=== PATIENT | female | born 1985 | race Caucasian/White ===

== ENCOUNTER 2018-05-16 06:49 | Inpatient (IN) | payer BC ==
[2018-05-16] MEDS ORDERED: OXYTOCIN 10 UNIT/ML 1 ML VIAL IM PRN (07:22)
[2018-05-16] MEDS ORDERED: LIDOCAINE 1% (PF) 10 MG/ML (30 ML SDV) SQ PRN (07:22)
[2018-05-16] MEDS ORDERED: CARBOPROST TROMETHAMINE 250 MCG/ML 1 ML AMP IM PRN (07:22)
[2018-05-16] MEDS ORDERED: METHYLERGONOVINE 0.2 MG/ML 1 ML AMP IM PRN (07:22)
[2018-05-16] MEDS ORDERED: TERBUTALINE 1 MG/ML VIAL SQ PRN (07:22)
[2018-05-16] MEDS: LACTATED RINGERS 1,000 ML IV SCH ×4 (07:30→23:59)
[2018-05-16 07:31] VITALS: BMI 31.3
[2018-05-16 07:36] LABS: Basophils % (A) 0 %; Eosinophils # (A) 0.1 k/uL (0-0.7); Eosinophils % (A) 0 %; HCT 41.2 % (34.0-46.0); Lymphocytes # (A) 2.1 k/uL (1.0-4.8); Lymphocytes % (A) 13 %; MCH 29.9 pg (25.0-35.0); MCHC 34.1 g/dL (31.0-37.0); MCV 87.8 fL (80.0-100.0); Mean Platelet Volume 8.1; Monocytes # (A) 0.7 k/uL (0-1.0); Monocytes % (A) 5 %; Neutrophils # (A) 12.5 k/uL (1.3-7.7); Neutrophils % (A) 80 %; Platelet Count 204 k/uL (150-450); RBC 4.69 m/uL (3.80-5.40); RDW 13.7 % (11.5-15.5); WBC 15.5 k/uL (3.8-10.6)
[2018-05-16] MEDS ORDERED: ROPIVACAINE 100 MG, fentaNYL (PF) 200 MCG in SODIUM CHLORIDE 0.9% 76 ML EPIDURAL ONE (07:59)
--- NOTE | 2018-05-16 08:15 | P.HPOB ---
History of Present Illness H&P Date: 05/16/18 Chief Complaint: IUP @ 39 4/7 weeks, active labor This is a 33-year-old @ 39 4/7 weeks, that presents in active labor. She notes regular painful contractions, she denies loss of fluid or vaginal bleeding. She was a recent transfer to [facility] from [facility] at 26-6/7 weeks. On blood work blood type of A-, rubella immune, RPR nonreactive, hepatitis B surface antigen negative, HIV negative she did pass her Glucola at 28 weeks, and received RhoGAM along with Tdap, She is GBS negative Review of Systems Constitutional: Denies chills, Denies fatigue, Denies fever Cardiovascular: Reports edema Respiratory: Denies cough, Denies dyspnea Gastrointestinal: Denies constipation, Denies diarrhea Genitourinary: Reports Past Medical History Past Medical History: No Reported History History of Any Multi-Drug Resistant Organisms: None Reported Past Surgical History: Tonsillectomy Additional Past Surgical History / Comment(s): [place] tooth extraction Past Anesthesia/Blood Transfusion Reactions: No Reported Reaction Past Psychological History: No Psychological Hx Reported Smoking Status: Never smoker Past Alcohol Use History: None Reported Past Drug Use History: None Reported - Past Family History Mother Family Medical History: No Reported History Medications and Allergies Home Medications Medication Instructions Recorded Confirmed Type Cetirizine HCl [Zyrtec] 5 mg PO DAILY 05/16/18 05/16/18 History Omeprazole [PriLOSEC] 20 mg PO AC-BRKFST 05/16/18 05/16/18 History Pnv,Calcium 72/Iron/Folic Acid 1 each PO DAILY 05/16/18 05/16/18 History [ Plus Tablet] Allergies Allergy/AdvReac Type Severity Reaction Status Date / Time Sulfa (Sulfonamide Allergy Rash/Hives Verified 05/16/18 06:55 Antibiotics) Exam Osteopathic Statement: *. No significant issues noted on an osteopathic structural exam other than those noted in the History and Physical/Consult. Vital Signs Temp Pulse Resp BP Pulse Ox 05/16/18 07:28 97.9 F 88 16 134/85 05/16/18 07:04 97.9 F 81 18 134/85 100 Intake and Output 05/15/18 05/16/18 05/16/18 22:59 06:59 14:59 Other: Weight 88.451 kg 87.997 kg - OBG Physical Exam Abdomen: gravid Cervix: 7/-2 vertex presentation, intact membranes Uterus: gravid and appropriate for GA Results Result Diagrams: 05/16/18 07:20 Abnormal Lab Results - Last 24 Hours (Table) 05/16/18 Range/Units 07:20 WBC 15.5 H (3.8-10.6) k/uL Neutrophils # 12.5 H (1.3-7.7) k/uL Assessment and Plan (1) Term Current Visit: Yes Status: Acute Code(s): Z34.80 - ENCOUNTER FOR SUPRVSN OF NORMAL , UNSP TRIMESTER SNOMED Code(s): 27069520 Plan: Admit to labor and delivery with anticipation of spontaneous vaginal delivery.
[2018-05-16] MEDS ORDERED: DEXAMETHASONE SOD PHOS (MDV) 100 MG/10 ML VIAL ONE (12:30)
[2018-05-16] MEDS ORDERED: MORPHINE SULFATE 4 MG/ML SYRINGE ONE (12:30)
[2018-05-16] MEDS ORDERED: ONDANSETRON 4 MG/2 ML VIAL ONE (12:30)
[2018-05-16] MEDS ORDERED: ACETAMINOPHEN IV (For NPO) 1,000 MG/100 ML VIAL ONE (12:30)
[2018-05-16] MEDS ORDERED: SODIUM CHLORIDE 0.9% 100 ML BAG ONE (12:30)
[2018-05-16] MEDS ORDERED: LIDOCAINE 2% (PF) 20 MG/ML 2 ML VIAL ONE (12:30)
[2018-05-16] MEDS ORDERED: OXYTOCIN 10 UNIT/ML 1 ML VIAL ONE (12:30)
[2018-05-16] MEDS ORDERED: diphenhydrAMINE 50 MG CAP PO PRN (13:24)
[2018-05-16] MEDS ORDERED: diphenhydrAMINE 50 MG/ML 1 ML VIAL IVP PRN ×2 (13:24)
[2018-05-16] MEDS ORDERED: METOCLOPRAMIDE 5 MG/ML 2 ML VIAL IVP PRN (13:24)
[2018-05-16] MEDS ORDERED: diphenhydrAMINE 25 MG CAP PO PRN (13:24)
[2018-05-16] MEDS ORDERED: NALOXONE 0.4 MG/ML 1 ML VIAL IV PRN ×2 (13:24→19:09)
[2018-05-16] MEDS ORDERED: ONDANSETRON 4 MG/2 ML VIAL IVP PRN (13:24)
[2018-05-16] MEDS ORDERED: ZOLPIDEM 5 MG TAB PO PRN (13:24)
[2018-05-16] MEDS ORDERED: LANOLIN CREAM 5 GM TUBE TOPICAL PRN (13:24)
[2018-05-16] MEDS ORDERED: OXYTOCIN 20 UNITS/1000 ML NS 1,000 ML IV SCH (13:30)
--- NOTE | 2018-05-16 13:32 | P.OP ---
Date of Procedure: 05/16/18 Preoperative Diagnosis: IUP at 39 and 4, nonreassuring heart tones Postoperative Diagnosis: Same Procedure(s) Performed: Primary low transverse section Anesthesia: epidural Surgeon: Carol Man Gasser Machine Operator #1: Hoang Appiah Estimated Blood Loss (ml): 500 IV fluids (ml): 600 Urine output (ml): 100 Pathology: none sent Condition: stable Disposition: observation Indications for Procedure: Nonreassuring heart tones with pushing Operative Findings: Normal uterus tubes and ovaries were appreciated. Infant male in occiput transverse presentation clear fluid noted Description of Procedure: The patient was prepped and draped in the usual fashion after epidural anesthesia was found to be adequate. A Pfannenstiel incision was made and extended of the abdominal cavity without difficulty. The bladder peritoneum was elevated and incised and reflected distally. A 2 cm incision was made in the transverse plane of the lower uterine segment to enter the uterus at which time clear fluid was noted. The incision was extended in both directions using the bandage scissors. The head was encountered within the field and delivered up and through the incision where the nose and mouth were thoroughly suctioned. Remainder of the was delivered onto the surgical field where the cord was doubly clamped, cut, and the infant was passed for resuscitative measures with weight 7-7and Apgars 9-9 at one and 5 minutes respectively. A segment of cord was then doubly clamped, cut, and set aside should cord gases become necessary. The placenta was delivered manually, intact, and was grossly normal with a grossly normal three-vessel cord. The uterus was exteriorized and the interior cavity of the uterus swept of any remaining placental and membranous fragments with a laparotomy sponge. The margins of the incision were grasped with allis clamps and the incision closed in 2 layers. First layer was a running locking layer of 0 vicryl from margin to margin followed by a second layer of imbricating 0 vicryl from margin to margin. Any small points of bleeding were then made hemostatic with the Bovie. Once hemostasis was achieved, the posterior cul-de-sac was suctioned with a guard and the uterine and ovarian findings are as noted above. The uterus was replaced within the abdominal cavity and the gutters swept of any remaining blood fluid or clot. The incision was again reexamined and hemostasis was noted to be excellent. Any small point of bleeding were made hemostatic with the Bovie. Once hemostasis was achieved the parietal peritoneum was loosely reapproximated. The layer of muscles were examined and made hemostatic with the Bovie. Attention was then turned to the fascia which was closed with 2 running stitches of 0 Vicryl proceeding from the lateral margins to the midpoint. The subcutaneous tissues were irrigated, made hemostatic with the Bovie. The skin was reapproximated with 4- vicryl. Estimated blood loss for the case was approximately 500 mL. All sponge instrument and needle counts are correct. There were no complications. The patient tolerated the procedure well and proceeded to the recovery room in stable condition. Both mother and infant are resting comfortably in recovery.
[2018-05-16] MEDS ORDERED: IBUPROFEN IV 800 MG in SODIUM CHLORIDE 0.9% 250 ML IV ONE (14:00)
[2018-05-16] MEDS ORDERED: Rhogam IMMUNE GLOBULIN 1,500 UNIT/1 ML IM ONE (18:30)
[2018-05-16] MEDS ORDERED: MORPHINE SULFATE 4 MG/ML SYRINGE IVP PRN (19:09)
[2018-05-16] MEDS: SENNOSIDES-DOCUSATE SODIUM 1 EACH TAB PO SCH (19:33)
[2018-05-17] MEDS: IBUPROFEN 600 MG TAB PO PRN ×4 (04:03→21:52)
[2018-05-17 07:24] LABS: Basophils % (A) 0 %; Eosinophils % (A) 0 %; HCT 34.7 % (34.0-46.0); HGB 12.1 gm/dL (11.4-16.0); Lymphocytes # (A) 2.7 k/uL (1.0-4.8); Lymphocytes % (A) 15 %; MCH 31.1 pg (25.0-35.0); MCHC 34.8 g/dL (31.0-37.0); MCV 89.2 fL (80.0-100.0); Mean Platelet Volume 8.3; Monocytes # (A) 0.7 k/uL (0-1.0); Monocytes % (A) 4 %; Neutrophils # (A) 14.7 k/uL (1.3-7.7); Neutrophils % (A) 80 %; Platelet Count 177 k/uL (150-450); RBC 3.89 m/uL (3.80-5.40); WBC 18.3 k/uL (3.8-10.6)
--- NOTE | 2018-05-17 07:29 | P.PN ---
Progress Note - Text Date: 05/17/2018 Time: 0658 The patient is status post section Vital signs stable VAS: 0-10 Patient has no complaints of pain. The patient incurred some minimal itching yesterday, this itching is now subsiding. Pain meds to be managed by service.
[2018-05-17] MEDS: SENNOSIDES-DOCUSATE SODIUM 1 EACH TAB PO SCH ×2 (08:16→22:15)
[2018-05-17] MEDS: ACETAMINOPHEN TAB 325 MG TAB PO PRN ×2 (08:16→18:54)
--- NOTE | 2018-05-17 08:30 | P.PNOBGPC ---
Subjective - Subjective Principal diagnosis: POD 1 LTCS NRFHTs Interval history: Patient is doing well this morning. She is ambulating to the bathroom without difficulty. She is complaining of some mild discomfort. She is tolerating clear liquids and is eating breakfast as we speak but she denies nausea and vomiting. She states her lochia is moderate this morning. Patient reports: Reports appetite normal, Reports voiding normally, Reports ambulating normally Coin: doing well Objective - Vital Signs Latest vital signs: Vital Signs Temp Pulse Resp BP Pulse Ox 05/17/18 06:00 16 05/17/18 04:00 98.9 F 96 16 124/63 98 05/17/18 02:00 16 05/16/18 23:51 98.4 F 88 16 143/81 98 05/16/18 22:00 16 98 05/16/18 19:43 98.7 F 97 16 141/88 98 05/16/18 15:20 98.8 F 108 H 16 146/84 99 05/16/18 14:50 105 H 14 138/83 05/16/18 14:20 108 H 16 148/82 98 05/16/18 14:05 100.3 F H 111 H 16 126/74 97 05/16/18 13:50 102 H 16 132/75 98 05/16/18 13:35 100.8 F H 103 H 16 144/88 97 05/16/18 13:20 99.1 F 112 H 14 159/71 97 Intake and Output 05/16/18 05/17/18 05/17/18 22:59 06:59 14:59 Output Total 1999 800 Balance -1999 Output: Urine 1999 800 Uretheral (Wilder) 500 - Exam Extremities: Present: normal Abdomen: Present: normal appearance, soft Incision: Present: normal, dry, intact Uterus: Present: firm - Labs Labs: Abnormal Lab Results - Last 24 Hours (Table) 05/17/18 Range/Units 07:01 WBC 18.3 H (3.8-10.6) k/uL Neutrophils # 14.7 H (1.3-7.7) k/uL Assessment and Plan (1) Term Current Visit: Yes Status: Acute Code(s): Z34.80 - ENCOUNTER FOR SUPRVSN OF NORMAL , UNSP TRIMESTER SNOMED Code(s): 95133936 (2) S/P section Current Visit: Yes Status: Acute Code(s): Z98.891 - HISTORY OF UTERINE SCAR FROM PREVIOUS SURGERY SNOMED Code(s): 563491211 Plan: Patient is doing well , we will encourage increased ambulation and advance her diet. She is encouraged to take the oral pain medication ordered the Motrin, Tylenol, [place] as needed for pain.
[2018-05-18] MEDS: ACETAMINOPHEN TAB 325 MG TAB PO PRN ×2 (01:03→07:57)
[2018-05-18] MEDS: IBUPROFEN 600 MG TAB PO PRN ×3 (04:27→15:50)
[2018-05-18 08:44] VITALS: BP 137/80; PULSE 90; RESP 14; TEMP 97.7
[2018-05-18] MEDS: SENNOSIDES-DOCUSATE SODIUM 1 EACH TAB PO SCH (09:37)
--- NOTE | 2018-05-18 09:47 | P.DS ---
Providers Date of admission: 05/16/18 07:06 Expected date of discharge: 05/18/18 Attending physician: Carol Man Primary care physician: Stated None - Discharge Diagnosis(es) (1) Term Current Visit: Yes Status: Acute (2) S/P section Current Visit: Yes Status: Acute Hospital Course: This is a 33-year-old 1 para 0 that presented in active labor to labor and delivery. On initial cervical exam she was 5-6 cm. She was admitted to labor and delivery with expectant management. Amniotomy was performed and clear fluid was obtained. Patient progressed to complete began pushing nonreassuring heart tones were noted with pushing despite multiple position changes therefore a primary low transverse section was performed without difficulty. For further details on the please see the operative report. Infant boy delivered at 1244, weight of 7 lbs. 7 oz., Apgars of 9 and 9 at one and 5 minutes respectively. Patient's postoperative course has been uneventful. On this postop day #2 she is ambulating and voiding without difficulty. She is tolerating a regular diet without nausea or vomiting. She states her pain is controlled with oral Motrin and Tylenol. Plan - Discharge Summary New Discharge Prescriptions: No Action Pnv,Calcium 72/Iron/Folic Acid [ Plus Tablet] 1 each PO DAILY Omeprazole [PriLOSEC] 20 mg PO AC-BRKFST Cetirizine HCl [Zyrtec] 5 mg PO DAILY Discharge Medication List Cetirizine HCl [Zyrtec] 5 mg PO DAILY 05/16/18 [History] Omeprazole [PriLOSEC] 20 mg PO AC-BRKFST 05/16/18 [History] Pnv,Calcium 72/Iron/Folic Acid [ Plus Tablet] 1 each PO DAILY 05/16/18 [ History] Follow up Appointment(s)/Referral(s): Carol Man DO [Doctor of Osteopathic Medicine] - 2 Weeks Patient Instructions/Handouts: (DC), (GEN) Discharge Disposition: HOME SELF-CARE
== END 2018-05-18 16:15 | disposition home or self-care (01) | DRG 766 ==
LOC: FBPOP 06:49 → 4FBP 07:06
PROVIDERS: ADMIT Obstetrics & Gynecology Obstetrics; ATTEND Obstetrics & Gynecology Obstetrics
PROC: 10D00Z1 Extraction of Products of Conception, Low, Open Approach (ICD-10-PCS; principal; 2018-05-16 12:44)
PROC: 00HU33Z Insertion of Infusion Device into Spinal Canal, Percutaneous Approach (ICD-10-PCS; principal; 2018-05-16 12:44)
PROC: 3E0R3NZ Introduction of Analgesics, Hypnotics, Sedatives into Spinal Canal, Percutaneous Approach (ICD-10-PCS; principal; 2018-05-16 12:44)
PROC: 10907ZC Drainage of Amniotic Fluid, Therapeutic from Products of Conception, Via Natural or Artificial Opening (ICD-10-PCS; principal; 2018-05-16 12:44)
DX: O76 Abnormality in fetal heart rate and rhythm complicating labor and delivery (principal); Z37.0 Single live birth; Z3A.39 39 weeks gestation of pregnancy; Z79.899 Other long term (current) drug therapy; Z88.2 Allergy status to sulfonamides
CPT/HCPCS: 59025; 85025; 85461; 99213

== ENCOUNTER → 2021-03-18 | Outpatient (CLI) | payer OTHER ==
--- NOTE | 2021-03-18 15:37 | FL ---
Hysterosalpingogram HISTORY: R 97.9 [place] film is normal. 24 seconds fluoroscopy time were utilized, 4 images were obtained Following informed consent, the speculum was introduced into the vagina. The cervix was prepped with Betadine solution. Intrauterine catheter was advanced and fixed in place by inflating the balloon. Kontest hand-injection of contrast material was performed under fluoroscopic observation a spot images w ere obtained. Following the procedure the speculum and catheter were removed. No immediate, location. Patient remained in stable condition. The uterus is within normal limits as visualized. Fallopian tubes are patent. Spell of contrast mater ial is noted bilaterally. IMPRESSION: Patent fallopian tubes.
== END | disposition home or self-care (01) ==
LOC: RADUSWWP 13:39
PROVIDERS: ATTEND Obstetrics & Gynecology Obstetrics
DX: N97.9 Female infertility, unspecified (principal)
CPT/HCPCS: 58340; 74740; Q9967

== ENCOUNTER 2024-02-23 10:02 | Inpatient (IN) | payer OTHER ==
[2024-02-23] MEDS ORDERED: miSOPROStoL 200 MCG TAB PO PRN (10:15)
[2024-02-23] MEDS ORDERED: METHYLERGONOVINE 0.2 MG/ML 1 ML AMP IM PRN (10:15)
[2024-02-23] MEDS ORDERED: OXYTOCIN 10 UNIT/ML 1 ML VIAL IM PRN (10:15)
[2024-02-23] MEDS ORDERED: TRANEXAMIC 1,000 MG/100ML-NACL 1,000 MG in EMPTY BAG 1 BAG IV PRN (10:15)
[2024-02-23] MEDS ORDERED: CARBOPROST TROMETHAMINE 250 MCG/ML 1 ML AMP IM PRN (10:15)
[2024-02-23] MEDS: LACTATED RINGERS 1,000 ML IV SCH ×2 (10:39→18:13)
[2024-02-23 10:42] LABS: Basophils % (A) 0 %; Eosinophils # (A) 0.1 k/uL (0-0.7); Eosinophils % (A) 1 %; HCT 39.5 % (34.0-46.0); HGB 13.6 gm/dL (11.4-16.0); Lymphocytes # (A) 2.1 k/uL (1.0-4.8); Lymphocytes % (A) 18 %; MCH 30.7 pg (25.0-35.0); MCHC 34.4 g/dL (31.0-37.0); MCV 89.1 fL (80.0-100.0); Mean Platelet Volume 9.9; Monocytes # (A) 0.6 k/uL (0-1.0); Monocytes % (A) 5 %; Neutrophils # (A) 8.9 k/uL (1.3-7.7); Neutrophils % (A) 74 %; Platelet Count 205 k/uL (150-450); RBC 4.43 m/uL (3.80-5.40); RDW 13.7 % (11.5-15.5)
[2024-02-23] MEDS: CITRIC ACID-SODIUM CITRATE 15 ML CUP PO ONE (11:38)
[2024-02-23] MEDS ORDERED: OXYTOCIN 30 UNITS/500 ML NS BAG IV ONE (12:09)
[2024-02-23] MEDS ORDERED: ONDANSETRON 4 MG/2 ML VIAL ONE (12:09)
[2024-02-23] MEDS ORDERED: MORPHINE SULFATE (PF) 0.3 MG/0.3 ML SYR ONE (12:09)
[2024-02-23] MEDS ORDERED: ePHEDrine 50 MG/ML 1 ML VIAL ONE (12:09)
[2024-02-23] MEDS ORDERED: NALBUPHINE 10 MG/ML (10 ML MDV) ONE (12:09)
[2024-02-23] MEDS ORDERED: METOCLOPRAMIDE 5 MG/ML 2 ML VIAL IVP PRN (12:56)
[2024-02-23] MEDS ORDERED: diphenhydrAMINE 50 MG CAP PO PRN (12:56)
[2024-02-23] MEDS ORDERED: ZOLPIDEM 5 MG TAB PO PRN (12:56)
[2024-02-23] MEDS ORDERED: diphenhydrAMINE 25 MG CAP PO PRN (12:56)
[2024-02-23] MEDS ORDERED: NALOXONE 0.4 MG/ML 1 ML VIAL IV PRN (12:56)
[2024-02-23] MEDS ORDERED: diphenhydrAMINE 50 MG/ML 1 ML VIAL IVP PRN ×2 (12:56)
--- NOTE | 2024-02-23 13:01 | P.HPOB ---
History of Present Illness H&P Date: 02/23/24 Chief Complaint: IUP at 39-0/7 weeks, history of x 1 desires repeat 39-year-old G2, P1 at 39-0/7 weeks that presents to labor and delivery for scheduled repeat section with tubal ligation. Patient has a prior history of a primary and requested repeat. Patient is done with family-planning therefore desires permanent sterilization. Patient is receiving routine care with myself which has been essentially uncomplicated. Patient has a known blood type of a negative, rubella status immune, hepatitis B surface engine, HIV negative, RPR is nonreactive, grew beta strep culture is negative. Review of Systems Constitutional: Denies chills, Denies fatigue, Denies fever Ears, nose, mouth and throat: Denies headache Cardiovascular: Reports leg edema Respiratory: Denies dyspnea Gastrointestinal: Denies constipation, Denies diarrhea, Denies nausea, Denies vomiting Genitourinary: Reports Past Medical History Past Medical History: No Reported History, GERD/Reflux Additional Past Medical History / Comment(s): coming for c section History of Any Multi-Drug Resistant Organisms: None Reported Past Surgical History: Section, Tonsillectomy Additional Past Surgical History / Comment(s): [place] tooth extraction , Past Anesthesia/Blood Transfusion Reactions: No Reported Reaction Past Psychological History: No Psychological Hx Reported Smoking Status: Never smoker Past Alcohol Use History: None Reported Past Drug Use History: None Reported - Past Family History Mother Family Medical History: Diabetes Mellitus Medications and Allergies Home Medications Medication Instructions Recorded Confirmed Type Cetirizine HCl [Zyrtec] 5 mg PO DAILY 05/16/18 02/23/24 History Omeprazole [PriLOSEC] 20 mg PO AC-BRKFST 05/16/18 02/23/24 History Vit No.180/Iron/Folic 1 each PO DAILY 05/16/18 02/23/24 History [ Plus Tablet] Aspirin 81 mg PO DAILY 02/18/24 02/23/24 History Folate 666 mcg PO DAILY 02/18/24 02/23/24 History Unk Fish Oil 1 tab PO DAILY 02/18/24 02/23/24 History Allergies Allergy/AdvReac Type Severity Reaction Status Date / Time Sulfa (Sulfonamide Allergy Rash/Hives Verified 02/23/24 10:12 Antibiotics) Exam Osteopathic Statement: *. No significant issues noted on an osteopathic structural exam other than those noted in the History and Physical/Consult. Intake and Output 02/22/24 02/23/24 02/23/24 22:59 06:59 14:59 Other: Weight 87.543 kg Targeted physical exam is performed this date General is well-nourished well- developed female in no acute distress, breathing is noted to be nonlabored, heart has regular rate and rhythm, abdomen is gravid and appropriate for gestational age, heart tones are noted to be category 1, she is not jimmie, cervical exam is deferred. Results Result Diagrams: 02/23/24 10:18 Abnormal Lab Results - Last 24 Hours (Table) 02/23/24 Range/Units 10:18 WBC 12.0 H (3.8-10.6) k/uL Neutrophils # 8.9 H (1.3-7.7) k/uL Assessment and Plan (1) History of section Current Visit: Yes Status: Acute Code(s): Z98.891 - HISTORY OF UTERINE SCAR FROM PREVIOUS SURGERY SNOMED Code(s): 599199712 (2) Term Current Visit: No Status: Acute Code(s): Z34.80 - ENCOUNTER FOR SUPRVSN OF NORMAL , UNSP TRIMESTER SNOMED Code(s): 29816192 Plan: 39-year-old at 39-0/7 weeks that presents for scheduled repeat section with tubal ligation. Surgery is reviewed and questions are answered. Risks are reviewed including but not meant to infection, bleeding, damage bladder, bowel, injury. Patient states understanding all questions were answered to her satisfaction we will proceed to operating room
--- NOTE | 2024-02-23 13:05 | P.OP ---
Date of Procedure: 02/23/24 Preoperative Diagnosis: IUP at 39 0/7 weeks, history of x 1, breech presentation family- planning complete Postoperative Diagnosis: Same Procedure(s) Performed: Repeat section with bilateral salpingectomy Anesthesia: spinal Surgeon: Carol Man [employer] Service Technician #1: Leonel Veronica Estimated Blood Loss (ml): 336 IV fluids (ml): 1,100 Urine output (ml): 300 (Clear yellow) Pathology: none sent Condition: stable Disposition: observation Indications for Procedure: History of section x 1, desires repeat Operative Findings: Normal uterus tubes and ovaries, thin meconium stained fluid is noted, viable male infant delivered at 1229, weight of 7 pounds 7 ounces, Apgars of 9 and 9 Description of Procedure: The patient was prepped and draped in the usual fashion after spinal anesthesia was administered by the anesthesia department. A Pfannenstiel incision was made and extended of the abdominal cavity without difficulty. The bladder peritoneum was elevated and incised and reflected distally. A 2 cm incision was made in the transverse plane of the lower uterine segment to enter the uterus at which time clear fluid was noted. The incision was extended in both directions using the bandage scissors. The sacrum was encountered within the field and delivered up and through the incision where the nose and mouth were thoroughly suctioned. Remainder of the infant was delivered onto the surgical field where the cord was doubly clamped, cut, and the was passed for resuscitative measures with weight and Apgars as noted above. The placenta was delivered manually, intact, and was grossly normal with a grossly normal three-vessel cord. The uterus was exteriorized and the interior cavity of the uterus swept of any remaining placental and membranous fragments with a laparotomy sponge. The margins of the incision were grasped with Bustos clamps and the incision closed in 2 layers. First layer was a running locking layer of 0 from margin to margin. Small amount of bleeding was noted in the midportion therefore a [id number] suture was used to obtain hemostasis. Any small points of bleeding were then made hemostatic with the Bovie. The right fallopian tube was then elevated the LigaSure was used to transect the mesosalpinx up to the cornual region. This was repeated on the opposite side and hemostasis was appreciated. Once hemostasis was achieved, the posterior cul-de-sac was suctioned with a guard and the uterine and ovarian findings are as noted above. The uterus was replaced within the abdominal cavity and the gutters swept of any remaining blood fluid or clot. The incision was again reexamined and hemostasis was noted to be excellent. Any small point of bleeding were made hemostatic with the Bovie. Once hemostasis was achieved the parietal peritoneum was loosely reapproximated. The layer of muscles were examined and made hemostatic with the Bovie. Attention was then turned to the fascia which was closed with 2 running stitches of 0 Vicryl proceeding from 1 lateral edge to the other. The subcutaneous tissues were irrigated, made hemostatic with the Bovie, and r eapproximated with a running stitch of 30 plain catgut. The skin was reapproximated with 4-0 Vicryl. Estimated blood loss for the case was approximately 336 mL. All sponge instrument and needle counts are correct. There were no complications. The patient tolerated the procedure well and proceeded to the recovery room in stable condition. Both mother and infant are resting comfortably in recovery.
[2024-02-23] MEDS: ACETAMINOPHEN IV (For NPO) 1,000 MG in EMPTY BAG 1 BAG IVPB PRN (15:44)
[2024-02-23] MEDS: ACETAMINOPHEN TAB 500 MG TAB PO SCH (20:43)
[2024-02-23] MEDS: SIMETHICONE 80 MG CHEWABLE PO PRN (21:03)
[2024-02-23] MEDS: SENNOSIDES-DOCUSATE SODIUM 1 EACH TAB PO SCH (21:03)
[2024-02-23] MEDS: IBUPROFEN IV 800 MG in SODIUM CHLORIDE 0.9% 250 ML IV PRN (21:33)
[2024-02-23] MEDS: ONDANSETRON 4 MG/2 ML VIAL IVP PRN (21:33)
[2024-02-24] MEDS: IBUPROFEN 600 MG TAB PO SCH (01:55)
[2024-02-24 05:37] VITALS: RESP 16
--- NOTE | 2024-02-24 07:21 | P.PN ---
Progress Note - Text Progress Note Date: 02/24/24 Postop day 1 from under spinal anesthesia with intrathecal morphine given for postop pain management. Patient is doing well. Pain is well controlled. On visual analog scale 3/10 Mild itching present No nausea or vomiting reported. No Headache or weakness and numbness in the legs. No complications from spinal anesthesia.
[2024-02-24 07:32] LABS: Basophils % (A) 0 %; Eosinophils # (A) 0.1 k/uL (0-0.7); Eosinophils % (A) 1 %; HCT 32.8 % (34.0-46.0); HGB 11.4 gm/dL (11.4-16.0); Lymphocytes # (A) 1.6 k/uL (1.0-4.8); Lymphocytes % (A) 15 %; MCH 31.1 pg (25.0-35.0); MCHC 34.6 g/dL (31.0-37.0); MCV 89.9 fL (80.0-100.0); Mean Platelet Volume 9.6; Monocytes # (A) 0.5 k/uL (0-1.0); Monocytes % (A) 5 %; Neutrophils # (A) 8.2 k/uL (1.3-7.7); Neutrophils % (A) 77 %; Platelet Count 149 k/uL (150-450); RBC 3.65 m/uL (3.80-5.40); RDW 13.7 % (11.5-15.5); WBC 10.6 k/uL (3.8-10.6)
--- NOTE | 2024-02-24 12:45 | P.PNOBGPC ---
Subjective - Subjective Principal diagnosis: Postop day 1, repeat section with bilateral salpingectomy Interval history: Patient is doing well postoperatively. She is ambulating and voiding without difficulty. States her pain is well-controlled. She denies concerns. She is breast-feeding without difficulty. Lochia is minimal Patient reports: Reports appetite normal, Reports voiding normally, Reports pain well controlled, Reports ambulating normally [place]: doing well, nursing well Objective - Vital Signs Latest vital signs: Vital Signs Temp Pulse Resp BP Pulse Ox 02/24/24 08:00 98.0 F 82 16 107/66 96 02/24/24 05:00 97.7 F 86 16 106/69 96 02/23/24 20:45 97.7 F 106 H 17 136/88 100 02/23/24 16:03 102 H 16 137/79 02/23/24 15:52 97.9 F 103 H 16 131/77 02/23/24 15:05 106 H 18 133/86 98 02/23/24 14:50 106 H 16 143/70 02/23/24 14:35 106 H 16 134/67 98 02/23/24 14:20 88 16 138/66 98 02/23/24 14:05 97.7 F 103 H 16 127/75 98 02/23/24 13:50 108 H 16 136/68 98 02/23/24 13:35 98 16 124/59 02/23/24 13:20 103 H 16 131/61 97 02/23/24 13:05 97.6 F 105 H 16 126/64 98 Intake and Output 02/23/24 02/24/24 02/24/24 22:59 06:59 14:59 Output Total 900 100 Balance -900 -100 Output: Urine 900 100 Other: # Voids 1 1 - Exam Extremities: Present: normal, edema Abdomen: Present: normal appearance, soft Incision: Present: normal, dry, intact Uterus: Present: normal, firm - Labs Labs: Abnormal Lab Results - Last 24 Hours (Table) 02/24/24 Range/Units 07:11 RBC 3.65 L (3.80-5.40) m/uL Hct 32.8 L (34.0-46.0) % Plt Count 149 L (150-450) k/uL Neutrophils # 8.2 H (1.3-7.7) k/uL Assessment and Plan (1) History of section Current Visit: Yes Status: Acute Code(s): Z98.891 - HISTORY OF UTERINE SCAR FROM PREVIOUS SURGERY SNOMED Code(s): 274950333 (2) Term Current Visit: No Status: Acute Code(s): Z34.80 - ENCOUNTER FOR SUPRVSN OF NORMAL , UNSP TRIMESTER SNOMED Code(s): 71492351 (3) S/P section Current Visit: No Status: Acute Code(s): Z98.891 - HISTORY OF UTERINE SCAR FROM PREVIOUS SURGERY SNOMED Code(s): 276815424 Plan: Patient is doing well postoperatively. Plan to increase ambulation, routine postoperative care and anticipate discharge home tomorrow.
[2024-02-25 08:54] VITALS: BP 136/86; PULSE 80; TEMP 98.4
--- NOTE | 2024-02-25 10:13 | P.DS ---
Providers Date of admission: 02/23/24 10:02 Expected date of discharge: 02/25/24 Attending physician: Carol Man Primary care physician: Stated None - Discharge Diagnosis(es) (1) History of section Current Visit: Yes Status: Acute (2) Term Current Visit: No Status: Acute (3) S/P section Current Visit: No Status: Acute Hospital Course: This is a 39-year-old G2, P1 that presented to labor and delivery at 39-0/7 weeks for scheduled repeat section she has been receiving routine care with myself which has been essentially uncomplicated. Patient did desire permanent sterilization with tubal ligation. Patient was admitted and C- section was performed without difficulty. For full details on the please see the operative report. Patient delivered a viable male at 1229, weight of 8 pounds 7 ounces, Apgars of 9 and 9 at 1 and 5 minutes respectively. Patient has done well postoperatively. She is ambulating and voiding without difficulty. She is tolerating a regular diet without nausea or vomiting. She is doing well and states she would like discharge home at 24 hours if possible. Patient Condition at Discharge: Good Plan - Discharge Summary New Discharge Prescriptions: No Action Vit No.180/Iron/Folic [ Plus Tablet] 1 each PO DAILY Omeprazole [PriLOSEC] 20 mg PO AC-BRKFST Cetirizine HCl [Zyrtec] 5 mg PO DAILY Aspirin 81 mg PO DAILY Unk Fish Oil 1 tab PO DAILY Folate 666 mcg PO DAILY Discharge Medication List Cetirizine HCl [Zyrtec] 5 mg PO DAILY 05/16/18 [History] Omeprazole [PriLOSEC] 20 mg PO AC-BRKFST 05/16/18 [History] Vit No.180/Iron/Folic [ Plus Tablet] 1 each PO DAILY 05/16/18 [History] Aspirin 81 mg PO DAILY 02/18/24 [History] Folate 666 mcg PO DAILY 02/18/24 [History] Unk Fish Oil 1 tab PO DAILY 02/18/24 [History] Follow up Appointment(s)/Referral(s): Carol Man DO [Doctor of Osteopathic Medicine] - 04/05/24 11:15 am (Post C/S Appointment 03-08-2024 at 3:45pm) Patient Instructions/Handouts: (GEN), (DC) Activity/Diet/Wound Care/Special Instructions: No intercourse, tub baths. No heavy lifting greater than a gallon of milk. No driving for two weeks. Call with any fever, shakes or chills, with any pain not alleviated by over the counter meds, or with any quesions or concerns. Oqte-brl-qygydkf ibuprofen 600 mg or 3 tablets every 6 hours as needed for pain. Discharge Disposition: HOME SELF-CARE
== END 2024-02-25 12:57 | disposition home or self-care (01) | DRG 785 ==
LOC: 4FBP 10:02
PROVIDERS: ADMIT Obstetrics & Gynecology Obstetrics; ATTEND Obstetrics & Gynecology Obstetrics
DX: O34.211 Maternal care for low transverse scar from previous cesarean delivery (principal); Z30.2 Encounter for sterilization; O26.893 Other specified pregnancy related conditions, third trimester; Z67.11 Type A blood, Rh negative; O99.62 Diseases of the digestive system complicating childbirth; K21.9 Gastro-esophageal reflux disease without esophagitis; O77.0 Labor and delivery complicated by meconium in amniotic fluid; O99.73 Diseases of the skin and subcutaneous tissue complicating the puerperium; L29.9 Pruritus, unspecified; Z88.2 Allergy status to sulfonamides; Z28.310 Unvaccinated for COVID-19; Z79.899 Other long term (current) drug therapy; Z79.82 Long term (current) use of aspirin; Z3A.39 39 weeks gestation of pregnancy; Z37.0 Single live birth
CPT/HCPCS: 85025; 85461; 86850; 86900; 86901; 88302